=== PATIENT | male | born 1985 | race Caucasian/White ===

== ENCOUNTER 2019-07-23 19:53 | Emergency (ER) | payer OTHER ==
[~2019-07-23] VITALS: Ht 175.3 cm; Wt 109.0 kg
[2019-07-23 20:45] VITALS: BP 130/90
[2019-07-23] MEDS ORDERED: HYDROCODONE/ACETAMINOPHEN 10/325MG TABLET PO ONE (22:30)
[2019-07-24 01:18] LABS: CLARITY URINE CLEAR (CLEAR); COLOR URINE YELLOW (YELLOW); KETONES URINE TRACE (NEGATIVE); LEUKOCYTE ESTERASE URINE TRACE (NEGATIVE); NITRITE URINE NEGATIVE (NEGATIVE); OCCULT BLOOD URINE NEGATIVE (NEGATIVE); PROTEIN URINE NEGATIVE (NEGATIVE); SPECIFIC GRAVITY URINE 1.036 (1.005-1.030)
[2019-07-24] MEDS ORDERED: BACITRACIN ZINC OINT UDPKT TOP ONE (01:30)
[2019-07-24] MEDS ORDERED: TETANUS, DIPHTHERIA, PERTUSSIS VAC/PF 0.5ML (>7YR OLD) IM ONE (01:30)
== END 2019-07-24 02:10 | disposition home or self-care (01) ==
LOC: EDBD 19:53 → ER 19:53
DX: S42.001A Fracture of unspecified part of right clavicle, initial encounter for closed fracture (principal); S02.2XXA Fracture of nasal bones, initial encounter for closed fracture; S01.112A Laceration without foreign body of left eyelid and periocular area, initial encounter; S01.81XA Laceration without foreign body of other part of head, initial encounter; S16.1XXA Strain of muscle, fascia and tendon at neck level, initial encounter; S33.5XXA Sprain of ligaments of lumbar spine, initial encounter; S20.211A Contusion of right front wall of thorax, initial encounter; S80.12XA Contusion of left lower leg, initial encounter; M25.552 Pain in left hip; M25.551 Pain in right hip; M25.511 Pain in right shoulder; F17.200 Nicotine dependence, unspecified, uncomplicated; V19.88XA Pedal cyclist (driver) (passenger) injured in other specified transport accidents, initial encounter; Y93.55 Activity, bike riding; Y92.89 Other specified places as the place of occurrence of the external cause; Y99.8 Other external cause status
CPT/HCPCS: 70486; 71045; 73000; 73030; 73521; 73552; 81003; 99285